=== PATIENT | female | born 1945 | race Caucasian/White ===

== ENCOUNTER → 2016-11-04 | Outpatient (CLI) | payer BC ==
[~2016-11-04] MED LIST: BECL0.3A INH; CHOL100027 PO; CLR10 PO; FLUT0.0529 NAE; LEVO75TA36 PO; METO50TA7 PO; OMEG10007 PO; PLV75 PO; SIMV40TA4 PO; ZNT/150 PO; [UNRECOGNIZED DRUG - CODE] PO
[2016-11-04 13:26] LABS: BASO % 0.6 %; BASO ABS # 0.04 K/uL (0-0.2); COMPLETE YES; EOS % 3.1 %; HEMATOCRIT 41.1 % (37-47); IG% 0.1 %; LYMPH % 31.6 %; LYMPH ABS # 2.23 K/uL (1.2-3.4); MEAN CELL VOLUME 84.7 fL (80-100); MEAN CORPUSCULAR HEMOGLOBIN 29.3 pg (25-34); MEAN CORPUSCULAR HGB CONC 34.5 g/dl (32-36); MEAN PLATELET VOLUME 10.1 fL (7.4-10.4); MONO % 11.8 %; NEUT % 52.8 %; PLATELET COUNT 316 K/uL (130-400); RED BLOOD COUNT 4.85 M/uL (4.2-5.4); WHITE BLOOD COUNT 7.05 K/uL (4.8-10.8)
[2016-11-04 13:37] LABS: ALT/SGPT 25 U/L (12-78); AST/SGOT 15 U/L (15-37); BLOOD UREA NITROGEN 16 mg/dl (7-18); BUN/CREATININE RATIO 19.4 (10-20); CALCIUM 8.8 mg/dl (8.5-10.1); CARBON DIOXIDE 26 mmol/L (21-32); CHLORIDE 109 mmol/L (98-107); CHOLESTEROL 226 mg/dl (0-200); CREATININE 0.81 mg/dl (0.60-1.20); GLUCOSE 89 mg/dl (70-99); POTASSIUM 3.8 mmol/L (3.5-5.1); SODIUM 141 mmol/L (136-145); TRIGLYCERIDES 217 mg/dl (0-150); VERY LOW DENSITY LIPOPROT CALC 43 mg/dl
[2016-11-04 14:08] LABS: ALB/GLOB RATIO 1.1 (0.9-2); ALKALINE PHOSPHATASE 72 U/L (45-117); CHOLESTEROL/HDL RATIO 3.6; HDL CHOLESTEROL 63 mg/dl; LDL CHOLESTEROL CALCULATED 120 mg/dl; THYROID STIMULATING HORMONE 0.432 uIu/ml (0.300-4.500)
== END | disposition home or self-care (01) ==
LOC: C.LABMFLN 08:54
PROVIDERS: ATTEND Family Medicine
DX: Z11.59 Encounter for screening for other viral diseases (principal); E78.5 Hyperlipidemia, unspecified; E03.9 Hypothyroidism, unspecified

== ENCOUNTER → 2016-12-04 | Outpatient (CLI) | payer BC ==
[2016-12-04 13:29] LABS: CHOLESTEROL/HDL RATIO 2.8
== END | disposition home or self-care (01) ==
LOC: C.LABMFLN 12:03
PROVIDERS: ATTEND Family Medicine
DX: E78.5 Hyperlipidemia, unspecified (principal)

== ENCOUNTER → 2017-09-16 | Outpatient (CLI) | payer BC ==
--- NOTE | 2017-09-17 13:24 | MAMMOGRAPHY REPORT ---
BILATERAL DIGITAL SCREENING MAMMOGRAM TOMOSYNTHESIS WITH CAD: 09/16/2017 CLINICAL HISTORY: Routine screening. Patient has no complaints. TECHNIQUE: Breast tomosynthesis in addition to standard 2D mammography was performed. Current study was also evaluated with a Computer Aided Detection (CAD) system. COMPARISON: Comparison is made to exams dated: 06/23/2016 mammogram, 03/29/2015 mammogram - [facility], 01/25/2014 mammogram, 01/23/2013 mammogram, 01/13/2012 mammogram, and 07/29/2011 mammogr am. BREAST COMPOSITION: There are scattered areas of fibroglandular density in both breasts. FINDINGS: No suspicious masses, calcifications, or areas of architectural distortion are noted in ei ther breast. There has been no significant interval change compared to prior exams. A biopsy marker clip is again noted within the left 12:00 breast. A linear scar marker denotes a scar on the left medellin perior breast. Bilateral asymmetries/benign-appearing masses are stable compared to prior exams. IMPRESSION: ACR BI-RADS CATEGORY 2: BENIGN There is no mammographic evidence of malignancy. A 1 year screening mammogram is recommended. The pa tient will receive written notification of the results. Approximately 10% of breast cancers are not detected with mammography. A negative mammographic report should not delay biopsy if a clinically suggestive mass is present. Mandy Castro M.D. /:09/16/2017 15:07:01 [employer]rain: Taylor SMITH)(Nahun), [facility] letter sent: Normal 1/2 BI-RADS Code: ACR BI-RADS Category 2: Benign
== END | disposition home or self-care (01) ==
LOC: C.MAMM 09:55
PROVIDERS: ATTEND Family Medicine
DX: Z12.31 Encounter for screening mammogram for malignant neoplasm of breast (principal)

== ENCOUNTER → 2017-10-04 | Outpatient (CLI) | payer BC ==
[~2017-10-04] MED LIST changes: -METO50TA7 PO; +METO50TA8 PO
[2017-10-04 13:51] LABS: INFLUENZA A PCR Neg for Influ A (NEG); INFLUENZA B PCR Neg for Influ B (NEG)
== END | disposition home or self-care (01) ==
LOC: C.LABMFLN 10:23
PROVIDERS: ATTEND Physician Assistant
DX: R05 Cough (principal)

== ENCOUNTER → 2017-10-06 | Outpatient (CLI) | payer BC ==
--- NOTE | 2017-10-06 11:46 | DIAGNOSTIC IMAGING REPORT ---
CHEST 2 VIEWS ROUTINE CLINICAL HISTORY: Fever. COMPARISON STUDY: Chest radiograph April 24, 2014. FINDINGS: Lung volumes are normal. No pneumothorax or pleural effusion is noted. There is no evidence for pulmonary edema. Cardiomediastinal silhouette is unremarkable. No consolidation is identified. Appearance of the chest is unchanged. IMPRESSION: No acute cardiopulmonary findings. Electronically signed by: Troy Cannon M.D. 10/06/2017 11:44 AM Dictated Date/Time: 10/06/2017 11:44 AM
== END | disposition home or self-care (01) ==
LOC: C.RAD 11:28
PROVIDERS: ATTEND Physician Assistant
DX: R50.9 Fever, unspecified (principal); R05 Cough

== ENCOUNTER → 2017-11-19 | Outpatient (CLI) | payer BC ==
[2017-11-19 12:45] LABS: BASO % 0.5 %; BASO ABS # 0.04 K/uL (0-0.2); EOS % 2.7 %; EOS ABS # 0.21 K/uL (0-0.5); HEMATOCRIT 42.1 % (37-47); HEMOGLOBIN 14.1 g/dL (12.0-16.0); IG# 0.02 K/uL (0.00-0.02); LYMPH % 35.4 %; LYMPH ABS # 2.78 K/uL (1.2-3.4); MEAN CORPUSCULAR HEMOGLOBIN 29.1 pg (25-34); MEAN CORPUSCULAR HGB CONC 33.5 g/dl (32-36); MEAN PLATELET VOLUME 10.7 fL (7.4-10.4); MONO % 9.9 %; MONO ABS # 0.78 K/uL (0.11-0.59); NEUT % 51.2 %; NEUT ABS # 4.02 K/uL (1.4-6.5); PLATELET COUNT 309 K/uL (130-400); RED CELL DISTRIBUTION WIDTH CV 13.2 % (11.5-14.5); RED CELL DISTRIBUTION WIDTH SD 42.4 fL (36.4-46.3); WHITE BLOOD COUNT 7.85 K/uL (4.8-10.8)
[2017-11-19 13:23] LABS: ALBUMIN 3.7 gm/dl (3.4-5.0); ALT/SGPT 22 U/L (12-78); AST/SGOT 16 U/L (15-37); BLOOD UREA NITROGEN 14 mg/dl (7-18); CALCIUM 8.8 mg/dl (8.5-10.1); CARBON DIOXIDE 26 mmol/L (21-32); CREATININE 0.76 mg/dl (0.60-1.20); GLUCOSE 87 mg/dl (70-99); POTASSIUM 3.6 mmol/L (3.5-5.1); SODIUM 141 mmol/L (136-145)
[2017-11-19 13:34] LABS: ALKALINE PHOSPHATASE 81 U/L (45-117); CHOLESTEROL 187 mg/dl (0-200); LDL CHOLESTEROL CALCULATED 87 mg/dl; TOTAL PROTEIN 7.1 gm/dl (6.4-8.2)
== END | disposition home or self-care (01) ==
LOC: C.LABMFLN 10:07
PROVIDERS: ATTEND Family Medicine
DX: I10 Essential (primary) hypertension (principal); E78.5 Hyperlipidemia, unspecified

== ENCOUNTER 2019-01-09 08:07 | Observation (INO) ==
--- NOTE | 2018-12-27 15:21 | PAT Medication Instructions ---
Medication Instructions Date of Service December 27, 2018 Home Medications Calcium 600 + D(3) 1 cap PO 3XWK Centrum Silver Women 1 tab PO QAM Qvar RediHaler 2 puff INHALATION Q12H Zyrtec 1 tab PO DAILY PRN aspirin [Aspir-Low] 81 mg PO QPM azelastine 1 spray INTRANASAL QPM clopidogrel [Plavix] 75 mg PO QAM flaxseed oil 1,000 mg PO BID levalbuterol tartrate [Xopenex HFA] 2 inh INHALATION Q6H PRN levothyroxine 75 mcg PO QAM metoprolol succinate 50 mg PO QPM nifedipine [Afeditab CR] 30 mg PO QAM omeprazole 20 mg PO BID simvastatin 1.5 tab PO PM coenzyme Q10 [CoQ-10] 100 mg PO QPM ranitidine HCl 150 mg PO HS ASK your prescriber and surgeon aspirin [Aspir-Low] 81 mg PO QPM clopidogrel [Plavix] 75 mg PO QAM STOP taking 2 weeks before surgery (or as soon as possible if surgery is within 2 weeks) flaxseed oil 1,000 mg PO BID coenzyme Q10 [CoQ-10] 100 mg PO QPM DO NOT take the morning of surgery Calcium 600 + D(3) 1 cap PO 3XWK Centrum Silver Women 1 tab PO QAM Zyrtec 1 tab PO DAILY PRN Take morning of surgery With a small sip of water, OTHERWISE NOTHING TO EAT OR DRINK AFTER MIDNIGHT: Qvar RediHaler 2 puff INHALATION Q12H levalbuterol tartrate [Xopenex HFA] 2 inh INHALATION Q6H PRN (if needed) levothyroxine 75 mcg PO QAM nifedipine [Afeditab CR] 30 mg PO QAM omeprazole 20 mg PO BID Take evening before surgery Qvar RediHaler 2 puff INHALATION Q12H aspirin [Aspir-Low] 81 mg PO QPM azelastine 1 spray INTRANASAL QPM levalbuterol tartrate [Xopenex HFA] 2 inh INHALATION Q6H PRN (if needed) metoprolol succinate 50 mg PO QPM omeprazole 20 mg PO BID simvastatin 1.5 tab PO PM ranitidine HCl 150 mg PO HS Other Notes If you have any questions please call us at [phone] or [phone] or [phone] or [phone]
--- NOTE | 2018-12-28 10:21 | Anesthesiology Consultation ---
Date of Service December 28, 2018 Assessment & Plan (1) Encounter for pre-operative examination: - ASA/Plavix instructions per surgeon/prescriber Chart Review Chart Review: Acceptable Risk for Surgery and Patient seen in Pre Admission Testing Teaching & Discussion Pre-Anesthesia Teaching/Discussion Notes: Instructed NPO after midnight before surgery,except medications with 15 cc of water. Medication instructions provided according to the PAT guidelines. History Surgery Operation Date: 01/09/19 07:00 Proposed Procedures p Left Breast Lumpectomy with Needle Localization and Left [place] Lymph Node Biopsy - Jasiel Reynoso MD, FACS Height/Weight Height: 5 ft 4.5 in Weight: 76.5 kg Allergies Allergy/AdvReac Type Severity Reaction Status Date / Time lisinopril Allergy Intermediate PRURITIS Verified 12/28/18 10:26 Penicillins Allergy Mild RASH Verified 12/28/18 10:26 oxycodone [From OxyContin] Allergy PRURITIS Verified 12/28/18 10:26 atorvastatin [From Lipitor] AdvReac MUSCLE Verified 12/26/18 09:52 ACHES/PAIN prednisone AdvReac "SHAKINESS"/VISUAL Verified 12/28/18 10:40 CHANGES Medications Home Medications Medication Instructions Recorded Confirmed Last Taken Calcium 600 + D(3) 1 cap PO 3XWK 06/09/18 12/26/18 06/14/18 Centrum Silver Women 1 tab PO QAM 06/09/18 12/26/18 06/14/18 Qvar RediHaler 2 puff INHALATION Q12H 06/09/18 12/26/18 Unknown Zyrtec 1 tab PO DAILY PRN 06/09/18 12/26/18 06/14/18 aspirin [Aspir-Low] 81 mg PO QPM 06/09/18 12/26/18 06/14/18 17:00 azelastine 1 spray INTRANASAL QPM 06/09/18 12/26/18 06/14/18 clopidogrel [Plavix] 75 mg PO QAM 06/09/18 12/26/18 06/10/18 08:00 flaxseed oil 1,000 mg PO BID 06/09/18 12/26/18 06/12/18 levalbuterol tartrate [Xopenex HFA] 2 inh INHALATION Q6H PRN 06/09/18 12/26/18 Unknown levothyroxine 75 mcg PO QAM 06/09/18 12/26/18 06/15/18 08:00 metoprolol succinate 50 mg PO QPM 06/09/18 12/26/18 06/14/18 nifedipine [Afeditab CR] 30 mg PO QAM 06/09/18 12/26/18 06/15/18 08:00 omeprazole 20 mg PO BID 06/09/18 12/26/18 06/14/18 17:00 simvastatin 1.5 tab PO PM 06/09/18 12/26/18 06/14/18 18:00 coenzyme Q10 [CoQ-10] 100 mg PO QPM 12/26/18 12/26/18 Unknown ranitidine HCl 150 mg PO HS 12/26/18 12/26/18 Unknown Past Medical History Medical History Asthma STABLE; RARE INHALER USE PRN Breast cancer, left Bursitis RIGHT HIP- MONTHLY INJECTIONS GERD (gastroesophageal reflux disease) CONTROLLED Hyperlipidemia Hypertension Hypothyroidism Kidney stones Migraine Osteoarthritis 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; ON ASA/PLAVIX Urinary leakage MILD Exercise / Class Metabolic Activity II 4-5 Yardwork/Stairs/Walk up hill Past Family History Family History Father Family hx colonic polyps Past Surgical History Surgical History History of colonoscopy History of dilatation and curettage History of esophagogastroduodenoscopy (EGD) History of open reduction and internal fixation (ORIF) procedure RIGHT ANKLE FRACTURE REPAIR History of tooth extraction History of total knee replacement RIGHT/LEFT Past Anesthesia History No Hx of Anesthesia Complications and No Family Hx of Anesthesia Complications History of PONV No Hx of PONV and No Hx of Motion Sickness Social History Smoking Status: Former smoker tobacco type: cigarettes Smoking cigarettes per day: QUIT 40+ YEARS AGO; PRIOR SOCIAL USE TEEN Do You Dip or Chew Tobacco: No Hx Alcohol Use: Yes Alcohol type: other alcohol intake frequency: holidays/special occasions only Hx Substance Use: No substance use type: does not use Review of Systems Patient denies chest pain, shortness of breath, dyspnea on exertion, cough, wheezing, palpitations. Physical Exam Vital Signs VITALS BP 116/76 P 79 TEMP 98.0 SP02 97%RA RESP 18 PHYSICAL Full neck and c-spine range of motion. Full TMJ range of motion. TMD 3 finger breaths Mallampati Score 2 Dentition: lower partial Lungs: clear throughout to auscultation Cardiac: regular rate and rhythm, no murmurs noted Spine: normal Carotid arteries: negative bruit Extremities: no edema Testing Electrocardiogram Date: 12/28/18 SR with occasional PVC's at 76bpm. Otherwise "normal." Echocardiogram Date: 05/16/14 LVEF 60%. No RWMA. No significant valvular disease. Normal left atrial appendage. Laboratory Results 12/28/18 10:51 12/28/18 10:51
[2018-12-28 12:37] LABS: Basophils # (auto) 0.04 K/uL (0-0.2); Basophils % (auto) 0.6 %; Eosinophils # (auto) 0.18 K/uL (0-0.5); Eosinophils % (auto) 2.6 %; Hematocrit (blood only) 41.8 % (37-47); Hemoglobin 14.1 g/dL (12.0-16.0); Immature Granulocytes # (auto) 0.02 K/uL (0.00-0.02); Immature Granulocytes % (auto) 0.3 %; Lymphocytes # (auto) 1.79 K/uL (1.2-3.4); Lymphocytes % (auto) 26.2 %; Mean Corpuscular Hgb Conc 33.7 g/dL (32-36); Mean Corpuscular Volume 86.5 fL (80-100); Mean Platelet Volume 10.4 fL (7.4-10.4); Monocytes # (auto) 0.77 K/uL (0.11-0.59); Monocytes % (auto) 11.3 %; Neutrophils # (auto) 4.02 K/uL (1.4-6.5); Platelet Count 313 K/uL (130-400); RDW Coefficient of Variation 13.3 % (11.5-14.5); RDW Standard Deviation 42.6 fL (36.4-46.3); Red Blood Count 4.83 M/uL (4.2-5.4); White Blood Count 6.82 K/uL (4.8-10.8)
[2018-12-28 12:44] LABS: BUN Creatinine Ratio 16.5 (10-20); Calcium 8.8 mg/dl (8.5-10.1); Creatinine Clr Calc Pharmacy 63.5 ml/min; Est GFR (African American) 84.1; Est GFR (Non-African American) 72.6; Potassium 3.9 mmol/L (3.5-5.1)
[~2019-01-09 08:07] MED LIST changes: -BECL0.3A INH; +CEFAZOLIN 2000MG 2,000 MG/15 ML SYR IV SCH; -CHOL100027 PO; -CLR10 PO; -FLUT0.0529 NAE; -LEVO75TA36 PO; +LR 15ML/HR IV SCH; -METO50TA8 PO; -OMEG10007 PO; -PLV75 PO; -SIMV40TA4 PO; -ZNT/150 PO; -[UNRECOGNIZED DRUG - CODE] PO
--- NOTE | 2019-01-09 09:36 | Nuclear Medicine Report ---
NM sentinel node inject only CLINICAL HISTORY: LEFT BREAST CA COMPARISON STUDY: No previous studies for comparison. FINDINGS: A timeout was performed. 5 intradermal periareolar injections were performed utilizing a total dose of 0.5 mCi Tc 99m Lymphose ek. The patient was sent to the operating room for intraoperative localization. IMPRESSION: Successful preoperative left left breast lymphoscintigraphy injection. Electronically signed by: Orlando Olivares M.D. 01/09/2019 9:35 AM
[2019-01-09] MEDS ORDERED: ONDANSETRON INJ 2 MG/ML 2 ML VIAL ONE (09:47)
[2019-01-09] MEDS ORDERED: PROPOFOL IV EMULSION 10 MG/ML 20 ML VIAL IV ONE (09:47)
[2019-01-09] MEDS ORDERED: fentaNYL citrate 100 MCG/2 ML VIAL ONE (09:47)
[2019-01-09] MEDS ORDERED: LIDOCAINE HCL 2% 2 ML VIAL/AMP(20MG/ML) INFIL ONE (09:47)
[2019-01-09] MEDS ORDERED: MIDAZOLAM HCL 1 MG/ML 2ML VIAL ONE (09:47)
--- NOTE | 2019-01-09 10:12 | History & Physical Bridge Note ---
Date of Service January 09, 2019 History & Physical Bridge Note I have examined the patient, reviewed the History & Physical and in the interval since the performance of the History & Physical I have noted the following changes of clinical significance: no changes noted
[2019-01-09] MEDS ORDERED: BUPIVACAINE 0.5 % 5 MG/1 ML MPF 30ML VIAL ONE (10:13)
[2019-01-09] MEDS ORDERED: ISOSULFAN BLUE 10 MG/ML VIAL 5 ML ONE (10:13)
[2019-01-09] MEDS ORDERED: LABETALOL HCL IV 5 MG/ML 20ML IV PRN (10:27)
[2019-01-09] MEDS ORDERED: ATROPINE SULFATE 0.1 MG/ML 10ML SYR IV PRN (10:27)
[2019-01-09] MEDS ORDERED: ONDANSETRON INJ 2 MG/ML 2 ML VIAL IV PRN ×2 (10:27→12:46)
[2019-01-09] MEDS ORDERED: fentaNYL citrate 100 MCG/2 ML VIAL IV PRN (10:27)
[2019-01-09] MEDS ORDERED: KETOROLAC 30 MG/ML VIAL IV PRN (10:27)
[2019-01-09] MEDS ORDERED: DEXAMETHASONE SOD INJ 4 MG/ML VIAL ONE ×2 (10:41)
[2019-01-09] MEDS ORDERED: METHYLENE BLUE 0.5% 10 ML VIAL ONE (11:06)
--- NOTE | 2019-01-09 11:32 | Operative Report ---
Post Operative Report Pre & Post Diagnosis Operation Date: 01/09/19 11:10 Pre-Op Diagnosis: Left Breast Cancer Post-Op Diagnosis: Left Breast Cancer Procedure Operation Date: 01/09/19 11:10 Actual Procedures p Left Breast Lumpectomy with Needle Localization and Left [place] Lymph Node Biopsy(Left) - Jasiel Reynoso MD, FACS Surgeon Jasiel Reynoso MD, FACS Human Performance Consultant Court Remy Estimated Blood Loss 10 Findings Consistent with Post-Op Diagnosis Specimens Lt breast and axillary tissue Description of Procedure see dictation I attest to the content of the Intraoperative Record and any orders documented therein. Any exceptions are noted below.
[2019-01-09] MEDS ORDERED: ACETAMINOPHEN 1,000 MG/100 ML VIAL IV ONE (11:34)
--- NOTE | 2019-01-09 12:20 | Anesthesiology Progress Note ---
Date of Service January 09, 2019 Anesthesia Post Procedure Vital Signs Vital Signs: Temp Pulse Pulse Resp BP Pulse Ox 01/09/19 12:14 72 12 146/72 H 100 01/09/19 12:05 72 17 132/75 100 01/09/19 11:55 83 19 136/77 100 01/09/19 11:47 36.9 C 67 15 141/80 H 99 01/09/19 09:24 36.7 C 62 18 137/72 97 Transfer of Care Handoff Completed per policy Notes Mental Status: alert / awake / arousable Patient Amnestic to Procedure: Yes Nausea / Vomiting: adequately controlled Pain: adequately controlled Airway Patency, RR, SpO2: stable & adequate BP & HR: stable & adequate Hydration State: stable & adequate Anesthetic Complications: no major complications apparent
[2019-01-09] MEDS ORDERED: TRAMADOL HCL 50 MG TABLET PO PRN (12:46)
[2019-01-09] MEDS ORDERED: MoRPHine SULFATE 4 MG/ML 1 ML CARP\\VIAL IV PRN (12:46)
[2019-01-09] MEDS ORDERED: ACETAMINOPHEN 325 MG TAB PO PRN (12:46)
[2019-01-09] MEDS ORDERED: PROMETHAZINE HCL 12.5 MG in SODIUM CHLORIDE 0.9% 50 ML IV PRN (12:46)
[2019-01-09] MEDS ORDERED: SODIUM CHLORIDE 0.9% 1000ML 1,000 ML IV SCH (12:46)
[2019-01-09] MEDS ORDERED: MoRPHine SULFATE 2 MG/ML CARP IV PRN (12:46)
--- NOTE | 2019-01-09 15:14 | Mammography Report ---
NEEDLE LOCALIZATION LEFT BREAST: 01/09/2019 CLINICAL HISTORY: 73-year-old woman with biopsy-proven invasive ductal carcinoma in the 1:00 left zonia ast. The patient presents for preoperative needle and wire localization prior to lumpectomy. COMPARISON: Left diagnostic mammograms, ultrasounds, ultrasound biopsy and post procedure mammograms dated 12/14/2018, screening mammograms 12/06/2018, 09/16/2017, 06/23/2016, 03/29/2015. PATIENT CONSENT: The risks of the procedure were explained to the patient and informed consent was ob tained. The patient denied eating or drinking anything this morning that would preclude anesthesia. She also denied allergy to lidocaine. A timeout was performed in the left breast was confirmed as a site for preoperative localization. PROCEDURE DESCRIPTION: Prior left breast imaging was reviewed. The ribbon-shaped biopsy clip in the 1:00 middle one third of the left breast in the area of subtle focal architectural distortion is the intended target for preoperative localization. With the patient in a supine position and left arm ex tended, repeat targeted ultrasound was performed in the 1:00 left breast. The subtle hypoechoic spic ulated mass with ribbon-shaped biopsy clip is identified and is the target for preoperative localizat ion. The skin of the left upper outer breast was prepped and draped in the usual sterile fashion. 1 % buffered Lidocaine without epinephrine was administered as local anesthesia. A 5cm Joshi II needl e and wire combination was inserted into the breast. Optimal positioning was confirmed and the wire w as locked in place, leaving both the needle and wire within the breast, as per surgeon's preference. Post ultrasound localization mammograms were obtained which demonstrates the localizing needle and w gaurav nearly abutting the ribbon-shaped biopsy clip, at the level of the proximal awilda. The entire pro cedure including approach and needle length were discussed with the operating surgeon prior to surger y. The patient tolerated the procedure well and there was no immediate complication. She was escort ed to the operating room in satisfactory condition. A specimen radiograph was obtained which demonstrates the localizing needle and wire, small spiculate d mass and associated ribbon-shaped clip. The operating surgeon also reported additional tissue was obtained along the distal/medial aspect of the specimen, near the tip of the needle. The initial spe cimen appears to include most of the lesion and therefore additional specimen radiography was not obt ained. IMPRESSION: NEEDLE LOCALIZATION Status post preoperative needle and wire localization in the 1:00 left breast for biopsy-proven carci noma. The imaged specimen includes the intended abnormalities. Final surgical pathology is pending. Belle Castro M.D. ay/:01/09/2019 12:24:29 Attending Technologist: RT Lucrecia,R, M, [facility] Store Shopper: RT Radha(R)(M), [facility]
[2019-01-09] MEDS: TRAMADOL HCL 50 MG TABLET PO PRN ×2 (16:23→21:29)
[2019-01-09] MEDS: CEFAZOLIN 1000MG 1,000 MG/7.5 ML SYR IV SCH (17:04)
--- NOTE | 2019-01-09 18:34 | Consultation ---
Date of Consultation January 09, 2019 Assessment & Plan (1) Breast cancer, left: s/p left breast lumpectomy and axillary LN dissection -pain control and post-op care as per Surgery -await final path results -f/u with Surgery after discharge to discuss any further treatment plans and for post-op f/u (2) Asthma: mild, intermittent, no exacerbation here -add DUonebs prn -continue beclomethasone 2 puffs bid for maintenance ICS (3) Hyperlipidemia: stable -continue statin (4) Hypertension: stable, controlled -continue metoprolol, nifedipine (5) Stroke: h/o right eye visual field issues--> unclear if was retinal or occipital lobe? -continue on ASA and add back Plavix on discharge tomorrow -continue statin (6) Hypothyroidism: TSH normal last summer -continue home dose of levothyroxine (7) GERD (gastroesophageal reflux disease): stable -continue PPI bid (8) DVT prophylaxis: SCDs to the thighs Ambulation Dispo-medically stable. Plan for discharge to home in the AM if continues to do well. Medically stable. Hospitalist service will sign off at this time. Please feel free to call with any acute or new issues. History of Present Illness Requesting Physician: Dr. Jasiel Reynoso Reason for Consultation: Medical Management Attending Physician: Jasiel Reynoso MD, [facility] History of Present Illness This pt is a 73 yo female with a h/o left breast CA, asthma, GERD, HL, HTN, hypothyroidism, kidney stones, migraines, OA, eye CVA, urinary incontinence, here post-op from a left breast lumpectomy and sentinel LN dissection. She has biopsy proven invasive ductal carcinoma stage 1 of the left breast. She reports doing very well post-op. Howard headache, no N/V, no abd pain. Has some minimal pain in left axilla. Denies chest pain or SOB. She has ambulated around the room. Allergies Allergy/AdvReac Type Severity Reaction Status Date / Time lisinopril Allergy Intermediate PRURITIS Verified 01/09/19 09:26 Penicillins Allergy Mild RASH Verified 01/09/19 09:26 oxycodone [From OxyContin] Allergy PRURITIS Verified 01/09/19 09:26 atorvastatin [From Lipitor] AdvReac MUSCLE Verified 01/09/19 09:26 ACHES/PAIN prednisone AdvReac "SHAKINESS"/VISUAL Verified 01/09/19 09:26 CHANGES Home Medications Home Medications Medication Instructions Recorded Confirmed Type Calcium 600 + D(3) 1 cap PO 3XWK 06/09/18 01/09/19 History Centrum Silver Women 1 tab PO QAM 06/09/18 01/09/19 History Qvar RediHaler 2 puff INHALATION Q12H 06/09/18 01/09/19 History Zyrtec 1 tab PO DAILY PRN 06/09/18 01/09/19 History aspirin [Aspir-Low] 81 mg PO QPM 06/09/18 01/09/19 History azelastine 1 spray INTRANASAL QPM 06/09/18 01/09/19 History clopidogrel [Plavix] 75 mg PO QAM 06/09/18 01/09/19 History flaxseed oil 1,000 mg PO BID 06/09/18 01/09/19 History levalbuterol tartrate [Xopenex HFA] 2 inh INHALATION Q6H PRN 06/09/18 01/09/19 History levothyroxine 75 mcg PO QAM 06/09/18 01/09/19 History metoprolol succinate 50 mg PO QPM 06/09/18 01/09/19 History nifedipine [Afeditab CR] 30 mg PO QAM 06/09/18 01/09/19 History omeprazole 20 mg PO BID 06/09/18 01/09/19 History simvastatin 1.5 tab PO PM 06/09/18 01/09/19 History coenzyme Q10 [CoQ-10] 100 mg PO QPM 12/26/18 01/09/19 History ranitidine HCl 150 mg PO HS 12/26/18 01/09/19 History tramadol 50 - 100 mg PO Q6H PRN #30 tab 01/09/19 Rx Patient History Medical History Asthma STABLE; RARE INHALER USE PRN Breast cancer, left Bursitis RIGHT HIP- MONTHLY INJECTIONS GERD (gastroesophageal reflux disease) CONTROLLED Hyperlipidemia Hypertension Hypothyroidism Kidney stones Migraine Osteoarthritis 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; ON ASA/PLAVIX Urinary leakage MILD Surgical History History of open reduction and internal fixation (ORIF) procedure RIGHT ANKLE FRACTURE REPAIR History of colonoscopy History of dilatation and curettage History of esophagogastroduodenoscopy (EGD) History of tooth extraction History of total knee replacement RIGHT/LEFT Family History Father Family hx colonic polyps Social History Preferred Language: Latvian Communication Ability: Effective Boiler Repairman Required: No Beliefs That Will Affect Care: None Current Living Situation: Spouse Other Information That Helps Us Care for You: No Feels Safe at Home: Yes Safety Concerns: Feels Safe At This Time Smoking Status: Former smoker Tobacco Type: cigarettes Cigarettes Per Day: QUIT 40+ YEARS AGO; PRIOR SOCIAL USE TEEN Do You Dip or Chew Tobacco: No Second Hand Exposure: No Tobacco Cessation Education Requested by Patient: No Hx Alcohol Use: Yes Alcohol type: other Hx Substance Use: No Review of Systems Review of Systems: All systems reviewed & are unremarkable except as noted in HPI & below Physical Exam Constitutional: WD/WN, vitals as above Eyes: PERRL, conjunctivae normal, anicteric sclerae ENMT: external ear and nose normal, oropharynx normal Neck: trachea midline, no thyromegaly Respiratory: normal respiratory effort, lungs clear to auscultation Cardiovascular: RRR, no murmur, no edema Chest (Breasts): Chest: + abnormal inspection of chest (left breast and axilla with dressing in place c/d/i) Gastrointestinal (Abdomen): normal bowel sounds, soft, nontender, no hepatosplenomegaly Musculoskeletal: Extremities: extremities normal to inspection; no cyanosis and no clubbing Skin: no rashes, warm and dry Neurologic: moves all extremities and awake; no focal motor deficits Psychiatric: A+Ox3, euthymic affect Results & Data Vital Signs (Past 12 Hours) Vital Signs Temp Pulse Pulse Pulse Resp BP BP 01/09/19 15:50 36.6 C 78 15 127/83 01/09/19 14:31 36.5 C 7 L 78 18 133/70 01/09/19 13:40 74 19 140/78 01/09/19 13:11 36.9 C 73 18 143/73 H 01/09/19 12:24 36.2 C L 74 14 142/73 H 01/09/19 12:14 72 12 146/72 H 01/09/19 12:05 72 17 132/75 01/09/19 11:55 83 19 136/77 01/09/19 11:47 36.9 C 67 15 141/80 H 01/09/19 09:24 36.7 C 62 18 137/72 Pulse Ox 01/09/19 15:50 94 01/09/19 14:31 94 01/09/19 13:40 94 01/09/19 13:11 93 01/09/19 12:24 94 01/09/19 12:14 100 01/09/19 12:05 100 01/09/19 11:55 100 01/09/19 11:47 99 01/09/19 09:24 97
[2019-01-09] MEDS ORDERED: ASPIRIN 81 MG ECTAB PO SCH (21:00)
[2019-01-09] MEDS ORDERED: SIMVASTATIN 20 MG TAB PO SCH (21:00)
[2019-01-09] MEDS ORDERED: METOPROLOL SUCC 50MG EXT REL TAB PO SCH (21:00)
[2019-01-09] MEDS: PANTOprazole 40 MG TAB PO SCH (21:11)
[2019-01-09] MEDS: BECLOMETHASONE DIP HFA 80 MCG 8.7G INH INH SCH (21:16)
--- NOTE | 2019-01-09 21:46 | Operative Report ---
DATE OF OPERATION: 01/09/2019 NAME OF OPERATION: Left breast lumpectomy with sentinel lymph node biopsy. PREOPERATIVE DIAGNOSIS: Left breast cancer. POSTOPERATIVE DIAGNOSIS: Left breast cancer. STAFF SURGEON: Jasiel Reynoso MD DIRECTOR OF PLACEMENT: Cipriano Remy PA-C ANESTHESIA: General. DESCRIPTION OF PROCEDURE: The patient was brought in the Operating Room and placed on the Operating Room table in the supine position. Her left breast and chest were prepped and draped as well as her axilla in the usual fashion. She had a needle placed in the lateral left breast and also injected for sentinel lymph node biopsy. Initially, the skin was anesthetized using 0.5% plain Marcaine. Incision was made in the left axilla carrying dissection down deep into the axilla excising the sentinel node, sending it for frozen section, which was negative. During the frozen section, lumpectomy was performed. Elliptical incision was made around the needle from lateral to medial and dissection carried down around the needle. The initial tissue was marked with skin anterior, needle anterolateral long silk suture lateral and then the tip of the needle was deep. At this point, it was placed into the Faxitron, the clip was within the tissue, but it appeared it was relatively close to the deep tissue. Additional deep tissue was taken down to the muscle. It was marked with a long suture lateral, short suture medial and methylene blue new deep margin. Additional superior and inferior tissue were taken. These were marked with long silk suture lateral, short silk suture medial with methylene blue new margin. Deep tissues in both sites were closed using 2-0 plain suture and then the skin and the breast closed using subcuticular 4-0 Monocryl with Steri-Strips in the axilla using 4-0 nylon for the skin. Dressings applied. The patient was transferred to Recovery Room in stable condition. I attest to the content of the Intraoperative Record and any orders documented therein. Any exception s are noted below.
[2019-01-10] MEDS ORDERED: ALBUT/IPRATROP 3MG/0.5MG NEB 3 ML VIAL NEB PRN (00:26)
[2019-01-10 00:29] VITALS: PULSE 66
[2019-01-10] MEDS: CEFAZOLIN 1000MG 1,000 MG/7.5 ML SYR IV SCH ×2 (02:28→08:49)
[2019-01-10 03:22] VITALS: BP 113/54; TEMP 97.9; O2SAT 94
[2019-01-10 06:05] LABS: Basophils # (auto) 0.01 K/uL (0-0.2); Basophils % (auto) 0.1 %; Hematocrit (blood only) 35.6 % (37-47); Hemoglobin 12.3 g/dL (12.0-16.0); Immature Granulocytes # (auto) 0.05 K/uL (0.00-0.02); Immature Granulocytes % (auto) 0.4 %; Lymphocytes # (auto) 1.01 K/uL (1.2-3.4); Lymphocytes % (auto) 7.8 %; Mean Corpuscular Hgb Conc 34.6 g/dL (32-36); Mean Corpuscular Volume 84.2 fL (80-100); Mean Platelet Volume 10.3 fL (7.4-10.4); Monocytes # (auto) 0.86 K/uL (0.11-0.59); Monocytes % (auto) 6.6 %; Neutrophils # (auto) 11.03 K/uL (1.4-6.5); Neutrophils % (auto) 85.1 %; Platelet Count 269 K/uL (130-400); RDW Coefficient of Variation 13.1 % (11.5-14.5); RDW Standard Deviation 39.8 fL (36.4-46.3); Red Blood Count 4.23 M/uL (4.2-5.4); White Blood Count 12.96 K/uL (4.8-10.8)
[2019-01-10] MEDS ORDERED: LEVOTHYROXINE SODIUM 75 MCG TABLET PO SCH (06:30)
[2019-01-10 06:36] LABS: Albumin Level 3.2 gm/dl (3.4-5.0); BUN Creatinine Ratio 21.9 (10-20); Creatinine Clr Calc Pharmacy 68.2 ml/min; Est GFR (African American) 90.8; Est GFR (Non-African American) 78.4
[2019-01-10 06:39] LABS: Bilirubin,Total 0.3 mg/dl (0.2-1); Globulin 3.1 gm/dl (2.5-4.0); Total Protein 6.4 gm/dl (6.4-8.2)
--- NOTE | 2019-01-10 08:18 | Anesthesiology Progress Note ---
Date of Service January 10, 2019 Anesthesia Post Procedure Vital Signs Vital Signs: Temp Pulse Pulse Pulse Resp BP BP 01/10/19 03:21 36.6 C 66 16 113/54 L 01/09/19 22:55 36.9 C 66 16 109/58 L 01/09/19 19:20 36.8 C 78 16 128/68 01/09/19 15:50 36.6 C 78 15 127/83 01/09/19 14:31 36.5 C 7 L 78 18 133/70 01/09/19 13:40 74 19 140/78 01/09/19 13:11 36.9 C 73 18 143/73 H 01/09/19 12:24 36.2 C L 74 14 142/73 H 01/09/19 12:14 72 12 146/72 H 01/09/19 12:05 72 17 132/75 01/09/19 11:55 83 19 136/77 01/09/19 11:47 36.9 C 67 15 141/80 H 01/09/19 09:24 36.7 C 62 18 137/72 Pulse Ox 01/10/19 03:21 94 01/09/19 22:55 95 01/09/19 19:20 94 01/09/19 15:50 94 01/09/19 14:31 94 01/09/19 13:40 94 01/09/19 13:11 93 01/09/19 12:24 94 01/09/19 12:14 100 01/09/19 12:05 100 01/09/19 11:55 100 01/09/19 11:47 99 01/09/19 09:24 97 Pain Intensity Left Arm: Pain Intensity: 2 Transfer of Care Handoff Completed per policy Notes Mental Status: alert / awake / arousable Patient Amnestic to Procedure: Yes Nausea / Vomiting: adequately controlled Pain: adequately controlled Airway Patency, RR, SpO2: stable & adequate BP & HR: stable & adequate Hydration State: stable & adequate Anesthetic Complications: no major complications apparent
[2019-01-10] MEDS: BECLOMETHASONE DIP HFA 80 MCG 8.7G INH INH SCH (08:50)
[2019-01-10] MEDS: PANTOprazole 40 MG TAB PO SCH (08:50)
[2019-01-10] MEDS ORDERED: NIFEdipine EXTENDED REL 30 MG TABCR PO SCH (09:00)
--- NOTE | 2019-01-10 11:05 | Discharge Summary ---
PRINCIPAL DIAGNOSIS: Left breast cancer. PROCEDURES: The patient underwent left breast lumpectomy with sentinel lymph node biopsy. HISTORY OF PRESENT ILLNESS: The patient is a 73-year-old female with biopsy proven left breast cancer for definitive surgery. She was brought into the hospital after undergoing needle localization and then underwent a left breast injection for sentinel lymph node biopsy. She was taken to the operating room where she underwent the sentinel lymph node biopsy which was negative and left lumpectomy which she tolerated very well. Has done well overnight and is felt stable for discharge home today to be followed in the surgical clinic next week.
== END 2019-01-10 10:18 | disposition home or self-care (01) ==
LOC: ASU 08:07 → 3W 08:07